=== PATIENT | male | born 1965 | race Two or more races ===

== ENCOUNTER 2025-05-31 11:09 | Inpatient (IN) | payer MEDICARE, OTHER ==
[~2025-05-31] VITALS: Ht 167.6 cm; Wt 49.0 kg
[2025-05-31] MEDS ORDERED: CLON0.5T PO (11:28)
[2025-05-31] MEDS ORDERED: AMLO2.5T2 PO (11:28)
[2025-05-31] MEDS ORDERED: OLAN10TA3 PO (11:28)
[2025-05-31] MEDS ORDERED: DIVA250T4 PO (11:28)
[2025-05-31] MEDS ORDERED: MULT-1275 PO (11:28)
[2025-05-31] MEDS ORDERED: HALO100A2 IM (11:28)
[2025-05-31] MEDS ORDERED: MIRT-121 PO (11:28)
[2025-05-31] MEDS ORDERED: DOCU-141 PO (11:28)
[2025-05-31] MEDS ORDERED: ATOR10TA PO (11:28)
[2025-05-31 11:41] LABS: PLATELET COUNT (AUTO) 200 K/uL (152-348); RED BLOOD CELL COUNT(AUTO) 4.25 MIL/uL (4.06-5.63); RED CELL DISTRIBUTION WIDTH 14.3 % (12.1-16.2); WHITE BLOOD COUNT (AUTO) 6.2 K/uL (3.6-10.2)
[2025-05-31 11:46] LABS: CREATININE 0.7 mg/dL (0.6-1.3); SODIUM SERUM 138.0 mmol/L (136-145); UREA NITROGEN, BLOOD 18.0 mg/dL (7-18)
[2025-05-31 11:52] LABS: ASPARTATE AMINOTRANSFERASE 21.0 U/L (15-37); TOTAL PROTEIN, SERUM 8.4 g/dL (6.4-8.2)
[2025-05-31 11:57] LABS: ETHANOL < 3 MG/DL (0-10)
[2025-05-31 13:10] VITALS: BP 122/78
[2025-05-31 14:20] LABS: *BILIRUBIN,URIN NEGATIVE (NEGATIVE); *BLOOD, URINE NEGATIVE (NEGATIVE); *CLARITY,URINE CLEAR (CLEAR); *COLOR,URINE YELLOW (YELLOW); *KETONES,URINE NEGATIVE (NEGATIVE); *PROTEIN,URINE NEGATIVE (NEGATIVE); *UROBILINOGEN,URINE 0.2 E.U./dl (NORMAL); LEUKOCYTE ESTERASE ,URINE 1+ (NEGATIVE); NITRITE, URINE NEGATIVE (NEGATIVE); UGLUCOSE NEGATIVE (NEGATIVE)
[2025-05-31 14:33] LABS: *AMPHETAMINE, URINE NEGATIVE (NEGATIVE); *BARBITURATE, URINE NEGATIVE (NEGATIVE); *BENZODIAZEPINE, URINE NEGATIVE (NEGATIVE); *CANNABINOID, URINE NEGATIVE (NEGATIVE); *COCCAINE, URINE NEGATIVE (NEGATIVE); *OPIATE, URINE NEGATIVE (NEGATIVE); *PHENCYCLIDINE SCREEN,URINE NEGATIVE (NEGATIVE)
[2025-05-31 14:34] LABS: SQUAMOUS EPITHELIAL CELL,UR NONE SEEN /HPF (NONE SEEN)
[2025-05-31] MEDS ORDERED: TEMAZEPAM 7.5 MG CAPSULE PO PRN ×2 (14:45)
[2025-05-31] MEDS ORDERED: MAG HYDROX/AL HYDROX/SIMETH 30 ML LIQUID UDC PO PRN (14:45)
[2025-05-31] MEDS ORDERED: LORAZEPAM 1 MG TABLET PO PRN (14:45)
[2025-05-31] MEDS ORDERED: ACETAMINOPHEN 325 MG TABLET PO PRN (14:45)
[2025-05-31] MEDS ORDERED: MAGNESIUM HYDROXIDE 30 ML LIQUID UDC PO PRN (14:45)
[2025-05-31 14:47] LABS: FENTANYL, URINE NEGATIVE (NEGATIVE)
[2025-05-31] MEDS ORDERED: TEMAZEPAM 15 MG CAPSULE PO PRN (15:00)
[2025-05-31 16:06] VITALS: BP 118/82; TEMP 98.7; O2SAT 99
[2025-05-31] MEDS: LORAZEPAM 1 MG TABLET PO PRN (19:33)
[2025-05-31 19:46] VITALS: BP 140/72; TEMP 97.8; O2SAT 96
[2025-05-31] MEDS: MIRTAZAPINE 15 MG TABLET PO SCH (20:13)
[2025-06-01 09:55] VITALS: BP 114/88; TEMP 98; O2SAT 98
[2025-06-01] MEDS: ENSURE ENLIVE (VAN) 240 ML LIQUID PO SCH (14:20)
[2025-06-01 15:39] VITALS: BP 129/96; TEMP 98; O2SAT 98
[2025-06-01] MEDS: ATORVASTATIN 10 MG TABLET PO SCH (20:14)
[2025-06-01 21:31] VITALS: BP 110/98; TEMP 98; O2SAT 97
[2025-06-02 07:52] VITALS: BP 118/78; TEMP 98.1; O2SAT 98
[2025-06-02] MEDS: MULTIVITAMINS,THERAPEUTIC TABLET PO SCH (08:53)
[2025-06-02] MEDS: DOCUSATE SODIUM 100 MG CAPSULE PO SCH (08:53)
[2025-06-02] MEDS: AMLODIPINE 2.5 MG TABLET PO SCH (08:55)
[2025-06-02] MEDS ORDERED: Medication Not On Formulary EA (Multivitamin 1 TAB) PO SCH (09:00)
[2025-06-02 16:01] VITALS: BP 98/58; TEMP 98.1; O2SAT 95
[2025-06-02 20:10] VITALS: BP 123/85; TEMP 98.7; O2SAT 95
[2025-06-03 08:55] VITALS: BP 132/69; TEMP 98.2; O2SAT 99
[2025-06-03 15:53] VITALS: BP 122/77; TEMP 98; O2SAT 98
[2025-06-03 20:18] VITALS: BP 148/88; TEMP 98.2; O2SAT 97
[2025-06-04 07:47] LABS: PLATELET COUNT (AUTO) 245 K/uL (152-348); RED BLOOD CELL COUNT(AUTO) 4.14 MIL/uL (4.06-5.63); RED CELL DISTRIBUTION WIDTH 14.2 % (12.1-16.2); WHITE BLOOD COUNT (AUTO) 6.5 K/uL (3.6-10.2)
[2025-06-04 08:27] VITALS: BP 111/80; TEMP 98; O2SAT 98
[2025-06-04 08:42] LABS: CREATININE 0.7 mg/dL (0.6-1.3); SODIUM SERUM 140.0 mmol/L (136-145); UREA NITROGEN, BLOOD 17.0 mg/dL (7-18)
[2025-06-04 16:08] VITALS: BP 118/80; TEMP 98.2; O2SAT 97
[2025-06-04 20:29] VITALS: BP 135/94; TEMP 98.3; O2SAT 97
[2025-06-05 08:36] VITALS: BP 112/73; TEMP 98; O2SAT 98
[2025-06-05 16:21] VITALS: BP 117/71; TEMP 98.2; O2SAT 97
[2025-06-05 20:11] VITALS: BP 121/85; TEMP 98.1; O2SAT 96
[2025-06-05] MEDS: BENZTROPINE MESYLATE 0.5 MG TABLET PO SCH (20:13)
[2025-06-06 08:16] VITALS: BP 113/85; TEMP 98; O2SAT 98
[2025-06-06 16:37] VITALS: BP 112/79; TEMP 98.2; O2SAT 97
[2025-06-06 19:37] VITALS: BP 110/76; TEMP 97.9; O2SAT 98
[2025-06-07 08:37] VITALS: BP 111/77; TEMP 97.3; O2SAT 97
[2025-06-07 17:37] VITALS: BP 117/82; TEMP 98.1; O2SAT 98
[2025-06-07 19:38] VITALS: BP 136/90; TEMP 98.1; O2SAT 98
[2025-06-08 07:40] VITALS: BP 110/82; TEMP 98; O2SAT 98
[2025-06-08 15:18] VITALS: BP 114/83; TEMP 98; O2SAT 98
[2025-06-08 19:54] VITALS: BP 126/86; TEMP 98.3; O2SAT 97
[2025-06-09 09:11] VITALS: BP 109/69; TEMP 98; O2SAT 99
== END 2025-06-09 14:41 | DRG 885 ==
LOC: ER 11:09 → GPS 13:43
PROVIDERS: ADMIT Psychiatry & Neurology Psychiatry; ATTEND Internal Medicine
DX: F20.0 Paranoid schizophrenia (principal); Z91.148 Patient's other noncompliance with medication regimen for other reason; E78.5 Hyperlipidemia, unspecified; F31.9 Bipolar disorder, unspecified; I11.9 Hypertensive heart disease without heart failure; Z68.1 Body mass index [BMI] 19.9 or less, adult; I25.10 Atherosclerotic heart disease of native coronary artery without angina pectoris; Z79.899 Other long term (current) drug therapy; R73.03 Prediabetes
CPT/HCPCS: 36415; 83735; 84100; 84443; 85025; 87086; G0480